=== PATIENT | female | born 1990 | race Caucasian/White ===

== ENCOUNTER 2016-09-07 08:00 | Observation (INO) | payer MEDICAID ==
[2016-09-07] VITALS (8 sets, daily range): BP systolic 113–143; BP diastolic 60–89; PULSE 77–117; RESP 16–18; TEMP 98.1–98.8; O2SAT 96–99
[~2016-09-07] VITALS: Ht 167.6 cm; Wt 50.0 kg
[~2016-09-07 08:00] MED LIST: AVIATAB PO; LEVE500T10 PO; LORA-392 PO; ZONI100C2 PO; ZYPR5TAB PO
[2016-09-07] MEDS ORDERED: SODIUM CHLOR 0.9% 1000 ML INJ 1,000 ML IV ONE (08:26)
[2016-09-07] MEDS ORDERED: ONDANSETRON HCL 4 MG/2 ML VIAL IVP ONE (08:30)
[2016-09-07] MEDS ORDERED: SODIUM CHLORIDE 0.9% FLUSH 10 ML FLUSH IVF PRN (08:30)
--- NOTE | 2016-09-07 08:32 | PD ---
HPI Chief Complaint: GI Complaint Time Seen by Provider: 08:26 Travel History International Travel<30 days: No Contact w/Intl Traveler<30days: No Traveled to known affect area: No History of Present Illness HPI This is a 25-year-old female with a history of mild cerebral palsy, reported newly diagnosed schizophrenia, who presents with her mother with complaints of vomiting and inability to hold down food or water. Mom states that she's been started recently on a new psychiatric medication and since then she's not been able to hold anything down. While mom feels this may be a side effect from the new medication, she is concerned that her daughter may be dehydrated. She states she brought her to [facility] yesterday and they recommended she get blood work and be further evaluated. She states that she had loose stool earlier however today there is more of a solid formed stool. There is no reported fever, chills. Mom states that they thought she may have had a low- grade temperature yesterday at [facility] however she has normal temperature today. There are no ill contacts. There is no reported pulmonary complaints although mom does state that she may have some postnasal drip with an occasional cough. Mom reports no food or water yesterday. PFSH Past Medical History Cerebral Palsy: Yes Developmental Delay: Yes Schizophrenia: Yes Seizures: Yes ?: Unknown LMP: 5-17 Social History Alcohol Use: No Tobacco Use: No Substance Use: No Allergies-Medications (Allergen,Severity, Reaction): Coded Allergies: No Known Allergies (Unverified , 12/21/15) Reported Meds & Prescriptions Reported Meds & Active Scripts Active Reported Risperidone 4 Mg Tab 4 Mg PO HS PRN Lamotrigine 25 Mg Tab 25 Mg PO BID Zonisamide 100 Mg Cap 200 Mg PO BID Review of Systems ROS Limitations: Clinical Condition (mild cerebral palsy and schizophrenia history mainly from the mother) Except as stated in HPI: all other systems reviewed are Neg General / Constitutional: No: Chills HENT: No: Headaches, Neck Pain Cardiovascular: No: Chest Pain or Discomfort, Palpitations Respiratory: Positive: Cough (occasional with), No: Shortness of Breath ( postnasal drip.), Wheezing Gastrointestinal: Positive: Nausea, Vomiting, Diarrhea (earlier, stools), No: Abdominal Pain ( that are formed.) Genitourinary: Positive: Decreased Urinary Output, No: Frequency, Dysuria Musculoskeletal: No: Weakness, Pain Neurologic: No: Weakness, Dizziness, Headache Psychiatric: Positive: Disorder of Thought, No: Substance Abuse Physical Exam Narrative GENERAL: Well-developed well-nourished female in no acute respiratory distress. The patient has obvious psychiatric issues and is minimally verbal to this physician. SKIN: Focused skin assessment warm/dry. No tenting appreciated. HEAD: Atraumatic. Normocephalic. EYES: No scleral icterus. No injection or drainage. ENT: No nasal bleeding or discharge. Dry mucous membranes. NECK: Trachea midline. Supple CARDIOVASCULAR: Tachycardic with normal rhythm. No obvious murmurs. RESPIRATORY: No accessory muscle use. Clear to auscultation. Breath sounds equal bilaterally. GASTROINTESTINAL: Abdomen soft, non-tender, nondistended. No hepatic or splenic margins appreciated on palpation. MUSCULOSKELETAL: No obvious deformities. No clubbing. No cyanosis. No edema. No tenting. NEUROLOGICAL: Awake and somewhat responsive however baseline mild cerebral palsy and psychiatric disorder. No obvious cranial nerve deficits. Motor grossly within normal limits. Normal speech. PSYCHIATRIC: Flat affect with minimal engagement. Data Data Last Documented VS Vital Signs Date Time Temp Pulse Resp B/P Pulse Ox O2 Delivery O2 Flow Rate FiO2 09/07/16 10:38 96 18 136/87 98 Room Air 09/07/16 08:02 98.6 Orders Complete Blood Count With Diff (09/07/16 08:26) Comprehensive Metabolic Panel (09/07/16 08:26) Urinalysis - C+S If Indicated (09/07/16 08:26) Lipase (09/07/16 08:26) Iv Access Insert/Monitor (09/07/16 08:26) Ecg Monitoring (09/07/16 08:26) Oximetry (09/07/16 08:26) Ondansetron Inj (Zofran Inj) (09/07/16 08:30) Sodium Chlor 0.9% 1000 Ml Inj (Ns 1000 M (09/07/16 08:26) Sodium Chloride 0.9% Flush (Ns Flush) (09/07/16 08:30) Potassium Chloride Eff (K-Lyte Cl Eff) (09/07/16 10:30) Admit Order (Ed Use Only) (09/07/16 12:14) Place In Observation (09/07/16 ) Code Status (09/07/16 12:13) Vital Signs (Adult) Q4H (09/07/16 12:13) Activity Oob Ad Roxana (09/07/16 12:13) Intake + Output GILMER.QSHIFT (09/07/16 12:13) Diet Clear Liquid (09/07/16 Lunch) Sodium Chlor 0.9% 1000 Ml Inj (Ns 1000 M (09/07/16 12:13) Sodium Chloride 0.9% Flush (Ns Flush) (09/07/16 12:15) Sodium Chloride 0.9% Flush (Ns Flush) (09/07/16 21:00) Acetaminophen (Tylenol) (09/07/16 12:15) Ondansetron Inj (Zofran Inj) (09/07/16 12:15) Basic Metabolic Panel (Bmp) (09/08/16 06:00) Scd Bilateral/Knee High GILMER.BID (09/07/16 12:13) Naloxone Inj (Narcan Inj) (09/07/16 12:15) Docusate Sodium-Senna (Gita-Colace) (09/07/16 21:00) Magnesium Hydroxide Liq (Milk Of Magnesi (09/07/16 12:15) Sennosides (Senokot) (09/07/16 12:15) Bisacodyl Supp (Dulcolax Supp) (09/07/16 12:15) Lactulose Liq (Lactulose Liq) (09/07/16 12:15) Consult Psychiatry (09/07/16 ) Magnesium (Mg) (09/07/16 12:18) Labs Laboratory Tests Test 09/07/16 09/07/16 09:00 09:53 White Blood Count 6.2 TH/MM3 Red Blood Count 4.66 MIL/MM3 Hemoglobin 14.9 GM/DL Hematocrit 44.3 % Mean Corpuscular Volume 95.2 FL Mean Corpuscular Hemoglobin 32.0 PG Mean Corpuscular Hemoglobin 33.7 % Concent Red Cell Distribution Width 12.6 % Platelet Count 243 TH/MM3 Mean Platelet Volume 7.9 FL Neutrophils (%) (Auto) 81.0 % Lymphocytes (%) (Auto) 11.6 % Monocytes (%) (Auto) 6.4 % Eosinophils (%) (Auto) 0.3 % Basophils (%) (Auto) 0.7 % Neutrophils # (Auto) 5.1 TH/MM3 Lymphocytes # (Auto) 0.7 TH/MM3 Monocytes # (Auto) 0.4 TH/MM3 Eosinophils # (Auto) 0.0 TH/MM3 Basophils # (Auto) 0.0 TH/MM3 CBC Comment DIFF FINAL Differential Comment Sodium Level 139 MEQ/L Potassium Level 3.4 MEQ/L Chloride Level 104 MEQ/L Carbon Dioxide Level 22.1 MEQ/L Anion Gap 13 MEQ/L Blood Urea Nitrogen 6 MG/DL Creatinine 0.81 MG/DL Estimat Glomerular Filtration 87 ML/MIN Rate Random Glucose 113 MG/DL Calcium Level 8.9 MG/DL Total Bilirubin 0.5 MG/DL Aspartate Amino Transf 35 U/L (AST/SGOT) Alanine Aminotransferase 48 U/L (ALT/SGPT) Alkaline Phosphatase 74 U/L Total Protein 8.0 GM/DL Albumin 4.6 GM/DL Lipase 109 U/L Urine Color YELLOW Urine Turbidity HAZY Urine pH 7.0 Urine Specific [place] 1.009 Urine Protein NEG mg/dL Urine Glucose (UA) NEG mg/dL Urine Ketones 40 mg/dL Urine Occult Blood NEG Urine Nitrite NEG Urine Bilirubin NEG Urine Urobilinogen LESS THAN 2.0 MG/DL Urine Leukocyte Esterase SMALL Urine RBC 1 /hpf Urine WBC 4 /hpf Urine Squamous Epithelial 5 /hpf Cells Urine Amorphous Sediment MANY Urine Bacteria RARE /hpf Urine Mucus FEW /lpf Microscopic Urinalysis Comment CULT NOT INDICATED MDM Medical Decision Making Medical Screen Exam Complete: Yes Emergency Medical Condition: Yes Differential Diagnosis Education side effect versus gastroenteritis versus cystitis versus metabolic arrangement. Narrative Course 25-year-old female history of mild cerebral palsy, schizophrenia, who presents with nausea vomiting 2 days. Patient was recent started on new psychiatric medications. The belief is this may be a reaction/side effect from the medication. The patient is nontoxic-appearing. She does have a mild UTI on laboratory work however do not believe this is the cause of the nausea vomiting. She is also noted to be mildly hypokalemic. She's been given potassium replacement. Mom is requesting a psychiatry evaluation. She is concerned that the nausea vomiting may continue and is concerned that there may be dehydration or metabolic problems from not eating or drinking. Patient was given potassium replacement Gatorade and crackers. Shortly thereafter she had a big episode of emesis. Given this, she'll be admitted under observation. Case was discussed with Dr. Dunn. She will need a psychiatry consult as well. Diagnosis Primary Impression: Intractable nausea and vomiting Additional Impressions: suspected medication side effect Schizophrenia Cerebral palsy not affecting current episode of care Admitting Information Admitting Physician Requests: Observation Carlos Morales MD Sep 07, 2016 08:32
[2016-09-07 09:20] LABS: AUTOMATED NEUTROPHIL # 5.1 TH/MM3 (1.8-7.7); BASOPHIL % 0.7 % (0.0-2.0); EOSINOPHIL % 0.3 % (0.0-4.0); HEMATOCRIT 44.3 % (35.0-46.0); HEMO FLAGS DIFF FINAL; LYMPH % 11.6 % (9.0-44.0); LYMPHOCYTE # 0.7 TH/MM3 (1.0-4.8); MEAN CELL VOLUME 95.2 FL (80.0-100.0); MEAN CORPUSCULAR HGB CONC 33.7 % (32.0-36.0); MONO % 6.4 % (0.0-8.0); PLATELET COUNT 243 TH/MM3 (150-450); RED BLOOD COUNT 4.66 MIL/MM3 (4.00-5.30); RED CELL DISTRIBUTION WIDTH 12.6 % (11.6-17.2); WHITE BLOOD COUNT 6.2 TH/MM3 (4.0-11.0)
[2016-09-07 09:43] LABS: ALT (GPT) 48 U/L (10-53)
[2016-09-07 09:46] LABS: ALKALINE PHOSPHATASE 74 U/L (45-117); TOTAL BILIRUBIN ADULT 0.5 MG/DL (0.2-1.0)
[2016-09-07 09:51] LABS: ANION GAP 13 MEQ/L (5-15); AST (GOT) 35 U/L (15-37); BICARBONATE 22.1 MEQ/L (21.0-32.0); BLOOD UREA NITROGEN 6 MG/DL (7-18); CHLORIDE 104 MEQ/L (98-107); GLOMERULAR FILTRATION RATE 87 ML/MIN (>89); POTASSIUM 3.4 MEQ/L (3.5-5.1); SODIUM (NA) 139 MEQ/L (136-145)
[2016-09-07 10:18] LABS: BACTERIA, URINE RARE /hpf; BLOOD, URINE NEG (NEG); GLUCOSE,URINE NEG (NEG); KETONE, URINE 40 mg/dL (NEG); MUCUS URINE FEW /lpf (OCC); NITRITE,URINE NEG (NEG); SQUAMOUS EPITHELIAL CELL URINE 5 /hpf (0-5); URINE COLOR YELLOW (YELLW/STRAW)
[2016-09-07 10:19] LABS: COMMENT (UR) CULT NOT INDICATED; CULTURE IF INDICATED CULT NOT INDICATED
[2016-09-07] MEDS ORDERED: MACR100C2 PO (10:29)
[2016-09-07] MEDS ORDERED: POTASSIUM CHLORIDE 25 MEQ EFFERVESCENT TAB PO ONE (10:30)
[2016-09-07] MEDS ORDERED: ZONI100C2 PO (11:49)
[2016-09-07] MEDS ORDERED: LAMO25TA PO (11:49)
[2016-09-07] MEDS ORDERED: RISP4TAB2 PO (11:49)
[2016-09-07] MEDS ORDERED: ONDANSETRON HCL 4 MG/2 ML VIAL IVP PRN (12:15)
[2016-09-07] MEDS ORDERED: MAGNESIUM HYDROXIDE SUSP 30 ML CUP PO PRN (12:15)
[2016-09-07] MEDS ORDERED: SENNOSIDES 8.6 MG TAB PO PRN (12:15)
[2016-09-07] MEDS ORDERED: BISACODYL 10 MG SUPP RECTAL PRN (12:15)
[2016-09-07] MEDS ORDERED: NALOXONE HCL 0.4 MG/ML AMP IV PRN (12:15)
[2016-09-07] MEDS ORDERED: SODIUM CHLORIDE 0.9% FLUSH 10 ML FLUSH IV FLUSH PRN (12:15)
[2016-09-07] MEDS ORDERED: ACETAMINOPHEN 325 MG TAB PO PRN (12:15)
[2016-09-07] MEDS ORDERED: LACTULOSE SYRUP 20 GM/30 ML CUP PO PRN (12:15)
[2016-09-07] MEDS ORDERED: cefTRIAXone INJ 1,000 MG in SODIUM CHLORIDE 0.9% INJ 100 ML IV SCH (13:00)
[2016-09-07] MEDS ORDERED: LORazepam 2 MG/ML VIAL IV PUSH PRN (13:15)
--- NOTE | 2016-09-07 13:15 | HHI.HP ---
[facility] Neelam Mejias M.D. Admission Diagnosis intractable nausea vomiting, schizophrenia, mild cerebral palsy Diagnoses: Chief Complaint: nausea/vomiting Travel History International Travel<30 Days: No Contact w/Intl Traveler <30 Da: No Traveled to Known Affected Are: No History of Present Illness 25-year-old female with history of epilepsy, cerebral palsy, recently diagnosed schizophrenia, presents with a two day history of intractable nausea and vomiting. The patient's mother is at bedside who provides most of the history. She reports the patient has been battling nausea/vomiting for probably over a month now. She states she has been seeing the patient's psychiatrist Dr. Flores who has been adjusting her medications. She states previously she was on Zyprexa, then switched to Latuda, then tried Abilify for a short time, now a few days ago she was switched to Risperdal and has taken only 2 doses. Over the past 2 days the patient has been unable to keep down any liquids or solids. She denies any abdominal pain. She was having episodes of diarrhea however had a semi-formed bowel movement this morning. Denies any fevers/chills. Denies any sick contacts. The mother works as a nanny but denies around any sick children. Denies eating anything out of the ordinary or any undercooked foods. The patient denies any dysuria or suprapubic pain. The patient was to be discharged from the ER however had another episode of vomiting witnessed by ER MD therefore the patient will be admitted to observation. Review of Systems Except as stated in HPI: all other systems reviewed are Neg Past Family Social History Past Medical History Epilepsy Cerebral Palsy Schizophrenia Past Surgical History Right leg tendon lengthening surgery Reported Medications Risperidone 4 Mg Tab 4 Mg PO HS PRN Lamotrigine 25 Mg Tab 25 Mg PO BID Zonisamide 100 Mg Cap 200 Mg PO BID Loxapine 25mg po hs prn insomnia Allergies: Coded Allergies: No Known Allergies (Unverified , 12/21/15) Active Ordered Medications Current Medications Medications (Trade) Dose Ordered Sig/Jill Route Start Time Stop Time Status Last Admin (NS 1000 ml Inj) 1,000 ml @ 100 mls/hr Q10H IV 09/07/16 13:00 (NS Flush) 2 ml UNSCH PRN IV FLUSH 09/07/16 12:15 (NS Flush) 2 ml BID IV FLUSH 09/07/16 21:00 (Tylenol) 650 mg Q4H PRN PO 09/07/16 12:15 (Zofran Inj) 4 mg Q6H PRN IVP 09/07/16 12:15 (Narcan Inj) 0.4 mg UNSCH PRN IV 09/07/16 12:15 (Gita-Colace) 1 tab BID PO 09/07/16 21:00 (Milk Of Magnesia Liq) 30 ml Q12H PRN PO 09/07/16 12:15 (Senokot) 17.2 mg Q12H PRN PO 09/07/16 12:15 (Dulcolax Supp) 10 mg DAILY PRN RECTAL 09/07/16 12:15 (Lactulose Liq) 30 ml DAILY PRN PO 09/07/16 12:15 Family History Mother with borderline diabetes Father with heart disease, depression/anxiety Maternal Grandmother with suspected bipolar disorder Social History Denies any tobacco, alcohol, or illicit drug use. Lives with her parents. Graduated special education high school age 23 Physical Exam Vital Signs Vital Signs Date Time Temp Pulse Resp B/P Pulse Ox O2 Delivery O2 Flow Rate FiO2 09/07/16 10:38 96 18 136/87 98 Room Air 09/07/16 08:49 117 18 143/78 99 Room Air 09/07/16 08:48 18 98 Room Air 09/07/16 08:02 98.6 112 16 143/85 99 Room Air Physical Exam GENERAL: Well-nourished, well-developed young female patient in [facility]. SKIN: Warm and dry. No rash. HEAD: Normocephalic. Atraumatic. EYES: Pupils equal and round. No scleral icterus. No injection or drainage. ENT: No nasal bleeding or discharge. Mucous membranes pink and moist. NECK: Supple. Trachea midline. CARDIOVASCULAR: Tachycardic, regular rhythm. S1, S2 noted. No murmur appreciated. RESPIRATORY: No accessory muscle use. Clear to auscultation. Breath sounds equal bilaterally. GASTROINTESTINAL: Abdomen soft, non-tender, nondistended. Normoactive bowel sounds x4. MUSCULOSKELETAL: No obvious deformities. Extremities without clubbing, cyanosis , or edema. NEUROLOGICAL: Awake and alert. No obvious cranial nerve deficits. Motor grossly within normal limits. Normal speech. PSYCHIATRIC: Appropriate mood and affect; insight and judgment limited. Laboratory Laboratory Tests Test 09/07/16 09/07/16 09:00 09:53 White Blood Count 6.2 Red Blood Count 4.66 Hemoglobin 14.9 Hematocrit 44.3 Mean Corpuscular Volume 95.2 Mean Corpuscular Hemoglobin 32.0 Mean Corpuscular Hemoglobin 33.7 Concent Red Cell Distribution Width 12.6 Platelet Count 243 Mean Platelet Volume 7.9 Neutrophils (%) (Auto) 81.0 Lymphocytes (%) (Auto) 11.6 Monocytes (%) (Auto) 6.4 Eosinophils (%) (Auto) 0.3 Basophils (%) (Auto) 0.7 Neutrophils # (Auto) 5.1 Lymphocytes # (Auto) 0.7 Monocytes # (Auto) 0.4 Eosinophils # (Auto) 0.0 Basophils # (Auto) 0.0 CBC Comment DIFF FINAL Differential Comment Sodium Level 139 Potassium Level 3.4 Chloride Level 104 Carbon Dioxide Level 22.1 Anion Gap 13 Blood Urea Nitrogen 6 Creatinine 0.81 Estimat Glomerular Filtration 87 Rate Random Glucose 113 Calcium Level 8.9 Total Bilirubin 0.5 Aspartate Amino Transf 35 (AST/SGOT) Alanine Aminotransferase 48 (ALT/SGPT) Alkaline Phosphatase 74 Total Protein 8.0 Albumin 4.6 Lipase 109 Urine Color YELLOW Urine Turbidity HAZY Urine pH 7.0 Urine Specific [place] 1.009 Urine Protein NEG Urine Glucose (UA) NEG Urine Ketones 40 Urine Occult Blood NEG Urine Nitrite NEG Urine Bilirubin NEG Urine Urobilinogen LESS THAN 2.0 Urine Leukocyte Esterase SMALL Urine RBC 1 Urine WBC 4 Urine Squamous Epithelial 5 Cells Urine Amorphous Sediment MANY Urine Bacteria RARE Urine Mucus FEW Microscopic Urinalysis Comment CULT NOT INDICATED Result Diagram: 09/07/1689909/07/16899 Assessment and Plan Problem List: (1) Intractable nausea and vomiting ICD Code: R11.2 Status: Acute (2) Decreased oral intake ICD Code: R63.8 Status: Acute (3) Schizophrenia ICD Code: F20.9 Status: Chronic Assessment and Plan 25-year-old female with history of epilepsy, cerebral palsy, recently diagnosed schizophrenia, presents with a two day history of intractable nausea and vomiting. Intractable Nausea/Vomiting, Inability to Tolerate Oral Intake: suspect secondary to psychiatric medications, however UTI possibly contributing. Also recently on antibiotics. Afebrile, no leukocytosis. -Continue supportive treatment with IVF, antiemetics prn -Monitor BMP -Clear liquid diet for now, advance as tolerated UTI: UA with +leuks, bacteria. Possibly contributing to GI symptoms above. -Will start on IV Rocephin -ordered mandatory urine culture, follow results Hypokalemia: acute, K 3.4, suspect secondary to recent vomiting. -given po KCl replacement -check mag -repeat BMP in am Schizophrenia: new diagnosis, outpatient psychiatrist Dr. Flores adjusting medications, recently changed from Zyprexa to Latuda to Abilify to Risperdal now -awaiting med list to be updated (dosing incorrect) -consult psychiatry for medication adjustment if needed -will hold risperdal for now with vomiting above Epilepsy: chronic, stable -continue patient's Lamictal, Zonisamide once med list updated -seizure precautions -IV Ativan prn seizure DVT Prophylaxis: teds/SCDs Code Status Full Code Discussed Condition With Patient, Patient's mom, Dr. Morales, Dr. Dunn Attending Statement Patient seen in her bedroom in the presence of two nurse from ER and her mother asked for Psychiatry specialist for medicine adjustment. the patient is stable at this time and no nausea or vomit. Irene David PA-C Sep 07, 2016 13:15 Devon Angelo MD Sep 07, 2016 15:58
[2016-09-07] MEDS: SODIUM CHLOR 0.9% 1000 ML INJ 1,000 ML IV SCH ×2 (13:20→22:33)
[2016-09-07] MEDS ORDERED: LOXA25CA PO (14:10)
[2016-09-07] MEDS ORDERED: RISP0.5T20 PO (14:10)
[2016-09-07] MEDS ORDERED: LORA-392 PO (14:11)
[2016-09-07] MEDS ORDERED: LOXAPINE 25 MG CAP PO PRN (15:00)
[2016-09-07] MEDS ORDERED: LORazepam 0.5 MG TAB PO PRN (15:00)
[2016-09-07] MEDS ORDERED: LOXAPINE 5 MG CAP PO PRN (15:30)
[2016-09-07] MEDS: SODIUM CHLORIDE 0.9% FLUSH 10 ML FLUSH IV FLUSH SCH (21:00)
[2016-09-07] MEDS ORDERED: ZONISAMIDE 100 MG CAP PO SCH (21:00)
[2016-09-07] MEDS: DOCUSATE SODIUM 50 MG/SENNA 8.6 MG TAB PO SCH (21:00)
[2016-09-07] MEDS: ZONISAMIDE 25 MG CAP PO SCH (21:31)
[2016-09-07] MEDS: lamoTRIgine 25 MG TAB PO SCH (21:31)
[2016-09-07] MEDS ORDERED: risperiDONE 0.5 MG TAB PO SCH (22:00)
[2016-09-08 03:33] VITALS: BP 115/62; PULSE 98; RESP 18; TEMP 98.2; O2SAT 99
[2016-09-08 08:03] VITALS: BP 136/83; PULSE 110; RESP 18; TEMP 96.8; O2SAT 96
[2016-09-08 08:18] LABS: BICARBONATE 20.1 MEQ/L (21.0-32.0); POTASSIUM 3.2 MEQ/L (3.5-5.1)
[2016-09-08] MEDS ORDERED: POTASSIUM CHLORIDE 20 MEQ CONTROLLED RELEASE TAB PO ONE ×2 (08:30→11:00)
[2016-09-08] MEDS ORDERED: CEFUROXIME AXETIL 250 MG TAB PO SCH (09:00)
[2016-09-08] MEDS: SODIUM CHLORIDE 0.9% FLUSH 10 ML FLUSH IV FLUSH SCH (09:00)
[2016-09-08] MEDS: DOCUSATE SODIUM 50 MG/SENNA 8.6 MG TAB PO SCH (09:00)
[2016-09-08] MEDS: ZONISAMIDE 25 MG CAP PO SCH (09:12)
[2016-09-08] MEDS: lamoTRIgine 25 MG TAB PO SCH (09:16)
--- NOTE | 2016-09-08 09:36 | HHI.PR ---
Subjective Remarks Follow up for intractable nausea/vomiting. The patient's mother is at bedside. She reports slight improvement overnight. No further episodes of vomiting however she does occasionally have an episode of gagging vs dry heaving and then it goes away on its own. Mother unsure if this could be a cough. Denies any sputum production. She was able to tolerate banana and toast this morning. No bowel movement since yesterday. She denies abdominal pain. No fevers/chills. Mother also concerned that she noticed left arm swollen. The left arm is the site of her IV receiving IV fluids. Patient denies any arm pain. Denies any leg pain/swelling or chest pains. Objective Vitals Vital Signs Date Time Temp Pulse Resp B/P Pulse Ox O2 Delivery O2 Flow Rate FiO2 09/08/16 08:03 96.8 110 18 136/83 96 09/08/16 03:33 98.2 98 18 115/62 99 09/07/16 23:42 98.1 99 18 113/60 96 09/07/16 20:38 98.4 95 18 140/79 98 09/07/16 16:17 98.8 77 18 141/78 99 09/07/16 12:51 104 18 137/89 99 Room Air 09/07/16 10:38 96 18 136/87 98 Room Air I/O 09/07/16 09/07/16 09/07/16 09/08/16 09/08/16 09/08/16 07:00 15:00 23:00 07:00 15:00 23:00 Intake Total 940 ml Balance 940 ml Intake Oral 240 ml IV Total 700 ml Result Diagram: 09/07/16 0900 09/08/16 0719 Objective Remarks GENERAL: Well-nourished, well-developed young female patient in [facility]. SKIN: Warm and dry. No rash. HEENT: Normocephalic. Atraumatic.Pupils equal and round. Mucous membranes pink and moist. NECK: Supple. Trachea midline. CARDIOVASCULAR: Tachycardic, regular rhythm. S1, S2 noted. No murmur appreciated. RESPIRATORY: No accessory muscle use. Clear to auscultation. Breath sounds equal bilaterally. GASTROINTESTINAL: Abdomen soft, non-tender, nondistended. Normoactive bowel sounds x4. MUSCULOSKELETAL: No obvious deformities. Left hand/distal forearm with minimal edema distal to the IV site at the left AC. Bilateral arms/legs nonerythematous and nontender to palpation. NEUROLOGICAL: Awake and alert. No obvious cranial nerve deficits. Motor grossly within normal limits. Normal speech. PSYCHIATRIC: Appropriate mood and affect; insight and judgment limited. Medications and IVs Current Medications Medications (Trade) Dose Ordered Sig/Jill Route Start Time Stop Time Status Last Admin (NS Flush) 2 ml UNSCH PRN IV FLUSH 09/07/16 12:15 (NS Flush) 2 ml BID IV FLUSH 09/07/16 21:00 (Tylenol) 650 mg Q4H PRN PO 09/07/16 12:15 (Zofran Inj) 4 mg Q6H PRN IVP 09/07/16 12:15 (Narcan Inj) 0.4 mg UNSCH PRN IV 09/07/16 12:15 (Gita-Colace) 1 tab BID PO 09/07/16 21:00 (Milk Of Magnesia Liq) 30 ml Q12H PRN PO 09/07/16 12:15 (Senokot) 17.2 mg Q12H PRN PO 09/07/16 12:15 (Dulcolax Supp) 10 mg DAILY PRN RECTAL 09/07/16 12:15 (Lactulose Liq) 30 ml DAILY PRN PO 09/07/16 12:15 (Ativan Inj) 1 mg Q2H PRN IV PUSH 09/07/16 13:15 (LaMICtal) 25 mg BID PO 09/07/16 21:00 09/08/16 09:16 (Ativan) 0.5 mg Q8H PRN PO 09/07/16 15:00 09/07/16 22:33 (Loxitane) 25 mg HS PRN PO 09/07/16 15:30 (Zonegran) 200 mg BID PO 09/07/16 21:00 09/08/16 09:12 (risperDAL) 0.5 mg HS PO 09/07/16 22:00 Hold (Ceftin) 250 mg Q12HR PO 09/08/16 09:00 09/11/16 08:59 (KCl) 40 meq ONCE ONCE PO 09/08/16 11:00 09/08/16 11:01 A/P Problem List: (1) Intractable nausea and vomiting ICD Code: R11.2 Status: Acute (2) Decreased oral intake ICD Code: R63.8 Status: Acute (3) Schizophrenia ICD Code: F20.9 Status: Chronic Assessment and Plan 25-year-old female with history of epilepsy, cerebral palsy, recently diagnosed schizophrenia, presents with a two day history of intractable nausea and vomiting. Intractable Nausea/Vomiting, Inability to Tolerate Oral Intake: suspect secondary to psychiatric medications, however UTI possibly contributing. Also recently on antibiotics. Afebrile, no leukocytosis. -Continue supportive treatment with IVF, antiemetics prn -Monitor BMP -patient improving, no vomiting overnight -Advance to BRAT diet, patient tolerating well -CXR images reviewed, unremarkable UTI: UA with +leuks, bacteria. Possibly contributing to GI symptoms above. -Continued IV Rocephin -ordered mandatory urine culture, showed mixed fermin, however will finish course of antibiotics given symptoms, prescribed Macrobid x5days at discharge Hypokalemia: acute, K 3.4, suspect secondary to recent vomiting. -given po KCl replacement -mag 1.9 -repeat K 3.2, given additional 80meq po kcl replacement -repeat serum K 3.9, resolved. Schizophrenia: new diagnosis, outpatient psychiatrist Dr. Flores adjusting medications, recently changed from Zyprexa to Latuda to Abilify to Risperdal now -continued patient's Risperdal for now -consult psychiatry for medication adjustment if needed -continue patient's ativan prn anxiety/agitation -discussed with Dr. Brown, recommends discontinuing Loxapine, continue Risperdal, ok to discharge, outpatient f/up with Dr. Flores Epilepsy: chronic, stable -continue patient's Lamictal, Zonisamide -seizure precautions -IV Ativan prn seizure -no seizure activity throughout admission Left Upper Extremity Edema: suspect secondary to IV fluids -doppler U/S negative for DVT -elevate the arm -discontinued IVF -swelling much improved DVT Prophylaxis: teds/SCDs Discharge Planning 1615hrs: Patient seen by Dr. Brown earlier today, discussed with him, recommended discontinuing Loxapine, continue risperdal, otherwise can follow up with outpatient psychiatrist Dr. Flores. CXR unremarkable. Left upper extremity U/ S negative for DVT. Left arm swelling much improved. Patient tolerating BRAT diet. Patient's mother wants to take the patient home. Patient stable for discharge. Discharge patient to home Condition on discharge: Improved Regular/[place] Diet as tolerated Ad Roxana activity Rx written: Macrobid 100mg po bid x5days, Zofran ODT 4mg SL q8h prn nausea/ vomiting Follow-up with primary care physician Dr. Mejias, and psychiatrist Dr. Flores Attending Statement Seen in her bedroom in the presence of her Mother and PA Mrs. Irene David will be discharge today she is not having more nausea or vomit Loxitane discontinued by Psychiatry and asked her to continue Risperdal at night and follow with her Primary psychiatry specialist tomorrow. Irene David PA-C Sep 08, 2016 09:36 Devon Angelo MD Sep 08, 2016 18:02
--- NOTE | 2016-09-08 10:37 | RADRPT ---
EXAM DATE/TIME: 09/08/2016 09:46 [facility] COMPARISON: No previous studies available for comparison. INDICATIONS : Left arm swelling. MEDICAL HISTORY : Seizures. Cerebral palsy. IBS. Schizophrenia. SURGICAL HISTORY : Right leg tendon repair. ENCOUNTER: Initial ACUITY: 2 day PAIN SCORE: 0/10 LOCATION: Left arm. FINDINGS: There is spontaneous flow documented in the brachial, basilic, cephalic, axillary, and subclavian vei ns. The vessels are compressible and augmentation response is documented. No filling defects are se en. The flow is phasic with respiration. Direction of flow in the jugular vein is caudal. CONCLUSION: Negative for deep venous thrombosis. Anurag Magallanes MD FACR on September 08, 2016 at 10:35 Board Certified Radiologist. This report was verified electronically.
[2016-09-08] MEDS ORDERED: NS + KCL 40 MEQ INJ 1,000 ML IV SCH (11:00)
--- NOTE | 2016-09-08 11:05 | RADRPT ---
EXAM DATE/TIME: 09/08/2016 10:55 [facility] COMPARISON: No previous studies available for comparison. INDICATIONS : Cough and shortness of breath. MEDICAL HISTORY : Seizures. Cerebral palsy. IBS. Schizophrenia. SURGICAL HISTORY : Right leg tendon repair. ENCOUNTER: Initial ACUITY: 1 day PAIN SCORE: 0/10 LOCATION: Bilateral chest FINDINGS: PA and lateral views of the chest demonstrate the lungs to be symmetrically aerated without evidence of mass, infiltrate or effusion. The cardiomediastinal contours are unremarkable. Osseous structure s are intact. CONCLUSION: No acute disease. Anurag Magallanes MD FACR on September 08, 2016 at 11:02 Board Certified Radiologist. This report was verified electronically.
[2016-09-08] MEDS ORDERED: cefTRIAXone INJ 1,000 MG in SODIUM CHLORIDE 0.9% INJ 100 ML IV SCH (13:00)
--- NOTE | 2016-09-08 13:42 | HHI.PYPN ---
Subjective Remarks This is not a full psychiatric consultation. Was asked to talk to this patient' s mother to comment on a course of various psychotropic medications her daughter has been given by a local psychiatrist. It appears patient has been diagnosed with schizophrenia in the past year with her various other developmental and cognitive issues. Patient is developed intractable nausea has been treated in our CDU at this time I did talk with the patient's mother about the various antipsychotics that been used including Zyprexa Latuda loxapine and Respinol and Abilify although there were fairly brief period of time. Mother questions if they may be involved with the nausea. The only present medications have been the 0.5 Respinol that is been given at at bedtime for the past 2-3 days. In the swallow subluxed. At bedtime when necessary. 8 into the need to not rule out other causes for the nausea. However in my opinion patient should discontinue her loxapine at this time since the nausea did present prior to the initiation of the Respinol. Okay to use the Respinol 0.5 mg at bedtime. The mother should contact her psychiatrist Dr. Flores at [facility] tomorrow for further care . Patient mother is quite satisfied with this and she will follow through with it Review of Systems ROS Limitations: Clinical Condition, Altered Mental Status Objective Alert: Yes [place]: Situation (patient not examined by me) Mood: Other (patient not examined by me) Affect: Other (he should not examined by me) Memory Intact: Comment (patient not examined by me) Hallucinations: Other (patient not examined by me) Delusions: No (patient not examined by me) Delusion Type: Other (patient not examined by me) Suicidal: Ideation (patient not examined by me) Homicidal: Ideation (he should not examined by me) Insight/Judgment He should not examined by me Remarks Patient is nonverbal he did not examine patient only talked with patient's mother Labs Test 09/08/16 07:19 Sodium Level 142 MEQ/L Potassium Level 3.2 MEQ/L Chloride Level 111 MEQ/L Carbon Dioxide Level 20.1 MEQ/L Anion Gap 11 MEQ/L Blood Urea Nitrogen 3 MG/DL Creatinine 0.66 MG/DL Estimat Glomerular Filtration 110 ML/MIN Rate Random Glucose 110 MG/DL Calcium Level 8.4 MG/DL Date/Time Procedure Status Source Growth 09/07/16 09:53 Urine Culture - Final Complete Urine Clean Catch 10-50,000 CFU/ML MIXED GRAM POSITIVE ... Vitals/IOs Vital Signs Date Time Temp Pulse Resp B/P Pulse Ox O2 Delivery O2 Flow Rate FiO2 09/08/16 08:03 96.8 110 18 136/83 96 09/07/16 12:51 Room Air Intake and Output 09/07/16 09/07/16 09/08/16 08:00 16:00 00:00 Intake Total 940 ml Balance 940 ml Assessment & Plan Problem List: (1) Schizophrenia ICD Code: F20.9 (2) Cerebral palsy not affecting current episode of care ICD Code: G80.9 (3) Intractable nausea and vomiting ICD Code: R11.2 Assessment & Plan Estimated LOS: days Justification for Cont. Inpt. Patient not examined by me is in the CDU and discharge to be determined by the treatment team Discharge Planning To be determined by treatment team mother recommended to follow-up with patient' s psychiatrist tomorrow suggested discontinuing the Loxitane but continue the at bedtime Respinol Request HC Surrog/Guard Advoc?: No David Brown MD Sep 08, 2016 13:42
[2016-09-08 14:29] VITALS: BP 136/80; PULSE 100; RESP 18; TEMP 97.9; O2SAT 95
[2016-09-08] MEDS ORDERED: ONDA4TAB7 SL (16:11)
[2016-09-08] MEDS ORDERED: MACR100C2 PO (16:11)
--- NOTE | 2016-09-08 16:11 | HHI.DCPOC ---
Discharge Care Plan Diagnosis: (1) Intractable nausea and vomiting (2) Decreased oral intake Goals to Promote Your Health * To prevent worsening of your condition and complications * To maintain your health at the optimal level Directions to Meet Your Goals Take your medications as prescribed Follow your dietary instruction Follow activity as directed Keep your appointments as scheduled Take your immunizations and boosters as scheduled If your symptoms worsen call your PCP, if no PCP go to Urgent Care Center or Emergency Room Smoking is Dangerous to Your Health. Avoid second hand smoke Call the 24-hour hour crisis hotline for domestic abuse at Irnee David PA-C Sep 08, 2016 4:11 pm
== END 2016-09-08 17:10 | disposition home or self-care (01) ==
LOC: NEPC 08:00 → NEDA 12:16 → NEPGCP 14:01
PROVIDERS: ADMIT Internal Medicine; ATTEND Internal Medicine
DX: R11.2 Nausea with vomiting, unspecified (principal); F20.9 Schizophrenia, unspecified; G80.9 Cerebral palsy, unspecified; N39.0 Urinary tract infection, site not specified; E87.6 Hypokalemia; G40.909 Epilepsy, unspecified, not intractable, without status epilepticus; R60.0 Localized edema
CPT/HCPCS: 71020; 76937; 80048; 80053; 81001; 83690; 83735; 84132; 85025; 87086; 93971; 96361; 96365; 96375; 96376; 99285; G0378; J0696; J2405; J3480; J7030